=== PATIENT | female | born 1960 | race African-American/Black ===

== ENCOUNTER 2019-07-15 14:12 | Inpatient (IN) | payer OTHER ==
[~2019-07-15] VITALS: Ht 157.5 cm; Wt 85.3 kg
[2019-07-15 14:20] VITALS: BP 135/65
[2019-07-15 14:53] LABS: POLYS 76.5 % (36.0-66.0)
[2019-07-15 14:54] LABS: ABSOLUTE NEUTROPHILS 12.3 thou/uL (1.4-8.2); BASOPHILS 0.5 % (0.0-2.0); EOSINOPHILS 0.8 % (0.0-3.0); LYMPHOCYTES 14.7 % (24.0-44.0); MCH 27.8 pg (26.0-34.0); MCHC 30.7 g/dL (28.0-37.0); MCV 90.7 fL (80.0-100.0); MONOCYTES 7.5 % (1.0-8.0); PLATELET COUNT 336 thou/uL (150-400); RBC 1.82 mil/uL (4.20-5.00); RDW 16.4 % (10.5-14.5); WBC 16.1 thou/uL (4.0-11.0)
[2019-07-15 14:57] LABS: HEMATOCRIT 16.5 % (37.0-47.0); HEMOGLOBIN 5.1 gm/dL (12.0-15.0)
[2019-07-15 15:02] LABS: CALCIUM 8.9 mg/dL (8.5-10.1); CREATININE 3.6 mg/dL (0.6-1.0)
[2019-07-15 15:06] LABS: ALBUMIN 2.9 g/dL (3.4-5.0); TOTAL BILIRUBIN 0.5 mg/dL (<0.1-1.0); TOTAL PROTEIN 7.8 g/dL (6.4-8.2)
[2019-07-15 15:15] LABS: APTT 26.9 Seconds (24.5-32.8); INR 1.1; PROTIME 11.6 Seconds (9.3-11.4)
[2019-07-15 16:09] VITALS: BP 116/50
[2019-07-15 16:46] LABS: CHOLESTEROL 160 mg/dL (<200); HDL CHOLESTEROL 32 mg/dL (>40); LDL CHOLESTEROL 86 mg/dL (<100); TRIGLYCERIDE 214 mg/dL (<150); VLDL 43 mg/dL (<40)
[2019-07-15 16:50] LABS: URINE BILIRUBIN NEGATIVE (Negative); URINE BLOOD 2+ (Negative); URINE CLARITY CLOUDY; URINE COLOR YELLOW; URINE GLUCOSE-RANDOM* NEGATIVE (Negative); URINE KETONES NEGATIVE (Negative); URINE LEUKOCYTES-REFLEX 2+ (Negative); URINE NITRITE-REFLEX NEGATIVE (Negative); URINE PROTEIN (DIPSTICK) 2+ (Negative); URINE SPECIFIC GRAVITY 1.015 (1.005-1.035); URINE UROBILINOGEN 0.2 E.U./dl (0.2-1.0)
[2019-07-15 16:50] LABS: SERUM ASSESSMENT Clear
[2019-07-15 16:59] LABS: CASTS None Seen /LPF (None Seen); CRYSTALS None Seen /LPF (None Seen); SQUAMOUS >10 Many /LPF (0-3); URINE RBC 3-10 Few /HPF (0-2); URINE WBC-REFLEX >25 Many /HPF (0-5); WBC CLUMPS Many (None Seen)
[2019-07-15 17:11] LABS: FOLIC ACID 14.8 ng/mL (8.6-58.9); TSH 2.035 uIU/mL (0.358-3.740)
[2019-07-15 18:52] VITALS: BP 142/60; BP 145/63
[2019-07-15 19:17] VITALS: BP 116/50
[2019-07-15 20:45] VITALS: BP 138/89
[2019-07-15 21:00] VITALS: BP 142/86
[2019-07-16] VITALS (8 sets, daily range): BP systolic 129–143; BP diastolic 60–81
--- NOTE | 2019-07-16 09:02 | NUR ---
ADMIT PT ALERT BUT REFUSES TO ANSWER ANY ADMISSION QUESTIONS. REPORTED PAIN IN WOUNDS TO RIGHT UPPER AND LOWER LEGS FEELING LIKE A SUNBURN UPSET AND WANTING CREAM APPLIED, WOUND PICTURES OBTAINED, WOUNDS CLEANSSED WITH NS AND COVERED WITH VASELINE GAUZE AND AN ABD. PT GIVEN BED BATH, WOUNDS FOUL AND VERY ODOROUS MODERATE BLOODY DRAINAGE. 2ND UNIT OF BLOOD COMPLETED NO S/S/ OF REACTION NOTED. IVF'S INITIATED VANCO AND ZOSYN GIVEN.
[2019-07-16 11:56] LABS: CALCIUM 8.8 mg/dL (8.5-10.1); CREATININE 3.2 mg/dL (0.6-1.0); POTASSIUM 4.3 mmol/L (3.5-5.1)
[2019-07-16 12:31] LABS: HEMOGLOBIN 6.6 gm/dL (12.0-15.0); WBC 12.9 thou/uL (4.0-11.0)
[2019-07-16 12:34] LABS: HEMATOCRIT 20.1 % (37.0-47.0); MCH 28.7 pg (26.0-34.0); MCHC 32.9 g/dL (28.0-37.0); MCV 87.2 fL (80.0-100.0); RBC 2.31 mil/uL (4.20-5.00); RDW 15.2 % (10.5-14.5)
--- NOTE | 2019-07-16 16:03 | NUR ---
PT ADMITTED RELATED TO RIGHT LOWER EXTREMITY WOUNDS. CM REVIEWED CHART AND SPOKE WITH CARE TEAM. CM MET WITH PT AT BEDSIDE THIS DAY. PT IS A&O X4. CM ROLE INTRODUCED. PT INDICATED SHE HAD BEEN LIVING AT [facility] FOR THE LAST 5 YEARS BUT THAT SHE HAD LEFT THERE YESTERDAY AND HAD GOTTEN HERSELF AN APARTMENT WHERE SHE HAD BEEN FOR A FEW HOURS. 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 PT INDICATED SHE HAD A WHEELCHAIR FOR USE IN THE COMMUNITY. PT INDICATED NO HH HX. PT INDICATED NO PCP. PT INDICATED SHE HAD NO EMERGENCY CONTACTS SHE WANTED LISTED. PT INDICATED SHE WASN'T RECEPTIVE TO POST ACUTE CARE STAY UPON DC. PT INDICATED THERE HAD BEEN ISSUE WITH HER INSURANCE AT THE FACILITY BUT THAT SHE SAID SHE HAD "[facility], WHATEVER THAT IS." PT RECEPTIVE TO VISITING WITH [facility]. CARE TEAM REACHED OUT TO ABRAMS TO CLARIFY PLOF AND INSURANCE INFO. CM TO FOLLOW INIDCATED WITH DC PLANNING.
--- NOTE | 2019-07-16 19:25 | NUR ---
Received awake on bed. Due medications given as prescribed. On room air. Vital signs stable. On room air. Pt very irritable and upset upon rounds this AM, wants to be transferred to - Dr Richmond informed and said he cannot do hospital to hospital transfer, may do discharge or AMA- Pt informed and asked for her decision- she just keeps on telling "I don't know", explained to her but she got angry and said that she is being yelled at, I explained to her that I was just explaining what the doctor said re: her transfer- charge nurse informed. Pt with ongoing blood transfusion during report this AM, blood finished, intervention filed up and repeat blood draw ordered at 10:30, Vital signs taken. Pt has been very upset with everything and refusing to answer assessment questions. Pt seen by wound team, dressing changed- Dakins wet to dry applied. Complained of pain, due PRN pain med of tylenol given as prescribed, still complaining of pain offered her PRN morphine IV but pt complained. Dr Richmond informed re: pain meds and prescribed [place] but pt refused still. Pt seen by Dr Sharpe this AM, pt said she does not want to be seen by him today and wants his own Supervisor [facility]. Pt seen by Dr Ann this AM as well, he read Dr Sharpe's notes and asked pt if she still wants to be seen, pt did not answer, he ordered CT scan to be done- pt did not refuse; for NPO post midnight- senior production supervisor nurse informed. Pt became very upset that there is nothing done with her pain, explained to her that I have been relaying to her Dr her complaints and she has been refusing medications given to her, pt became more upset when I was explaining to her and she said I was barking on her and she wanted to talk to the supervisor advice- called Red Levin and notified her that pt wants to talk to her, informed Etienne intake manager as well. Relayed to Dr Richmond CBC post blood transfusion results and he ordered 1 unit PRBC to be transfused, consent signed, vital signs taken. 3rd unit blood started at 1834- no reactions noted during first 15 mins, verified by Charge nurse. senior production supervisor nurse informed to continue blood transfusion and observe for any reactions. Assisted in ADLs. On renal diet- tolerating well, no nausea, no vomiting and no abdominal pain noted. Falls risk- falls bundle in place.
--- NOTE | 2019-07-17 03:55 | NUR ---
ASSUMED CARE OF PT AT 1900HRS. PT IS AOX3-4 AND MEKES NEEDS BE KNOWN. PT RECEIVED BLOOD TODAY WITH NO COMPLICATIONS. PT REPORTED SOME PAIN BUT IS ONLY TAKING TYLENOL. PT PLACED NPO AT MD FOR A POSSIBLE PROCEDURE IN THE AM. PT WAS ABLE TO GET COMFORTABLE AND SLEEP PART OF THE SHIFT. VSS AND NO S/S OF AVUTE DISTRESS. WILL CONTINUE TO MONITOR.
[2019-07-17 04:10] VITALS: BP 130/61
[2019-07-17 05:17] LABS: HEMATOCRIT 27.2 % (37.0-47.0); MCH 29.2 pg (26.0-34.0); MCHC 31.8 g/dL (28.0-37.0); MCV 91.7 fL (80.0-100.0); RBC 2.97 mil/uL (4.20-5.00); RDW 15.3 % (10.5-14.5); WBC 11.3 thou/uL (4.0-11.0)
[2019-07-17 05:19] LABS: HEMOGLOBIN 8.7 gm/dL (12.0-15.0)
[2019-07-17 05:23] LABS: CALCIUM 8.6 mg/dL (8.5-10.1); CREATININE 2.9 mg/dL (0.6-1.0); POTASSIUM 4.5 mmol/L (3.5-5.1)
[2019-07-17 08:20] VITALS: BP 160/73
[2019-07-17 10:36] VITALS: BP 143/62
[2019-07-17] MEDS ORDERED: XALATAN2.5 ML EA. EYE (12:01)
[2019-07-17] MEDS ORDERED: COSOPT PF EYE1 EACH EA. EYE (12:02)
[2019-07-17] MEDS ORDERED: LATANOPROST 0.2.5 ML EA. EYE (12:08)
--- NOTE | 2019-07-17 12:24 | NUR ---
Assess due to pt with right thigh and lower extremity leg wounds. Seem by wound care. Pt aggitated at time of visit, but willing to allow assist with ordering dinner and breakfast meal and provide food preferences. Unable to obtain information regarding wt hx. Pt squirmish in bed moving constantly. Most recent meals 60-90%. Encouraged high protein foods for wounds. Pt does not like much meat or eggs but really likes to eat fish. Will follow intake trends, add oral supplement if necessary. Low nutrition risk
[2019-07-17] MEDS ORDERED: NF EA. EYE (12:46)
--- NOTE | 2019-07-17 14:23 | NUR ---
FACESHEET FAXED TO [employer], FOR MEDICAID ASSISTANCE.
--- NOTE | 2019-07-17 14:58 | NUR ---
akin spoke with [place] where pt was resident for 5 years to see if could get medicaid number since pt cont to state she has insurance. " no in fact she does not have any active insurance, every time we tried to help her renew she would tell us to f-you and she would refuse cares. tried many time to send her out to have the legs eval and then odor, mast would come to get her and she would tell them to f-you. she wanted to go to but rehab department manager called 911 for her and you all closer than , so i guess she ended up with you all. no active insurance. we gave her wheel chair and walker donation."/jacinto.
[2019-07-17 15:55] VITALS: BP 143/75
--- NOTE | 2019-07-17 19:01 | HC ---
[facility] [place] [address] CONSULTATION Name: JOSIE BROWN Room #: 460-P ADM IN M.R.#: [id number] Admission: 07/15/19 Attend Phys: Mahin Richmond MD Discharge: Date of : 56 Report #: [id number] THIS REPORT FOR: //name// CC: Mahin Richmond [facility] physician/PCP DATE OF SERVICE: 07/16/2019 INFECTIOUS DISEASE CONSULTATION REASON FOR CONSULTATION: I was asked to evaluate concerning right lower extremity soft tissue mass with a secondary infection. HISTORY OF PRESENT ILLNESS: The patient is a 58-year-old who presents to the Emergency Room from [facility] with right lower extremity increased pain and swelling. The patient reports this has worsened over the last several days following a specific dressing change. She could not give me any further details. She could not give me details as far as how long she has been dealing with this wound and swelling. She was a very poor historian. REVIEW OF SYSTEMS: Ten-point review was negative other than what has been described above. It is noted the patient presented with marked anemia and elevated creatinine, which appeared chronic. ALLERGIES: IBUPROFEN. MEDICATIONS: As noted on her MAR, now including vancomycin and Zosyn. PAST MEDICAL HISTORY: Reported hypertension, chronic kidney disease. FAMILY HISTORY: Noncontributory. SOCIAL HISTORY: Nonsmoker, no significant alcohol intake. PHYSICAL EXAMINATION: GENERAL: She was afebrile and hemodynamically stable. Alert and cooperative. She was obese. EYES: Without scleral icterus. MOUTH: Without mucositis. NECK: Supple. LUNGS: Clear. HEART: Regular, without murmur. ABDOMEN: Soft and nontender with no hepatosplenomegaly or mass. EXTREMITIES: With large fungating mass with necrotic tissue, right lower leg, associated with nodularity going proximally to her anterior lateral thigh. 2+ edema involving the leg. [facility] [address] [place] [address] CONSULTATION Name: JOSIE BROWN Room #: 460-P ADM IN .R.#: [id number] Admission: 07/15/19 Attend Phys: Mahin Richmond MD Discharge: Date of : 56 Report #: [id number] LABORATORY STUDIES: Reviewed. MICROBIOLOGY: Reviewed. CT scan of the right lower extremity reviewed, noting anterior leg mass without bony change. IMPRESSION: 1. A 58-year-old with extensive right lower extremity soft tissue mass involving both the lower leg and thigh with secondary gram-negative infection. 2. Chronic kidney disease. 3. Gram-negative urinary tract infection. 4. Anemia. RECOMMENDATIONS: We will continue gram-negative coverage with Zosyn for both urine and soft tissue, adjusted for her renal failure. We will need tissue sampling for pathology review. Continue wound care and Nephrology followup. <ELECTRONICALLY SIGNED> By: Christopher Collins MD 07/17/19 [id number] Christopher Collins MD /ghanshyam
--- NOTE | 2019-07-17 20:04 | NUR ---
Assumed pt care this am, with wounds on her left leg and hip with a very foul smelling odor ragerless if wound dressing changes were made frequently. Dr. Ann did a bedside biopsy, sample sent to the lab. Pt was upset and wanted fo thw would to be cleaned "I and D" explained with the MD the reason for the biopsy, pt spoke to Dr. Ann. Pt would call out for pain medication when addressed pt would refuse the pain meds, this was done several times through out the shift. New wound dressing orders in from wound care team, awaiting Dr. Bowser to put in the orders for more Flagyl to be crushed and sprinkled on the [facility] bed since order placed was only 1 tab, call was made to the office of Dr. Bowser left a message for thew change. POC followed.endorsed to the night nurse.
[2019-07-17 20:14] VITALS: BP 139/68
--- NOTE | 2019-07-18 03:08 | NUR ---
ASSUMED CARE OF PT AT 1900HRS. PT IS AOX4 AND LETS NEEDS BE KNOWN . FALL PRECAUTION IN PLACE. PT REPORTS PAIN BUT REFUSES NARCOTICS ORDERED. DRESSING CHANGED PER TAYO. ASSESSMENT CHARTED. PT WAS ABLE TO GET COMFORTABLE AND SLEEP PART OF THE SHIFT. VSS AND NO S/S OF ACUTE DISTRESS. WILL COTINUE TO MONITOR.
[2019-07-18 05:43] LABS: HEMATOCRIT 23.5 % (37.0-47.0); HEMOGLOBIN 7.8 gm/dL (12.0-15.0); MCH 29.5 pg (26.0-34.0); MCHC 33.2 g/dL (28.0-37.0); MCV 88.6 fL (80.0-100.0); RBC 2.66 mil/uL (4.20-5.00); RDW 15.3 % (10.5-14.5); WBC 10.7 thou/uL (4.0-11.0)
[2019-07-18 08:04] VITALS: BP 141/69
[2019-07-18 09:41] LABS: % SATURATION 36 % (20-39); IRON 35 ug/dL (50-170); TIBC 98 ug/dL (250-450)
[2019-07-18 17:00] VITALS: BP 143/90
--- NOTE | 2019-07-18 19:33 | NUR ---
Assumed pt care this am, pt was pleasant and followed POC with no complaints. Fall precautions in place, wound care and dressing done. Pt verbalized that the cream on the would has worked and pain is minimal. POC followed no signs or verbalzations of distress have been noted. VS stable, external sawant in place. endorsed to the night nurse.
[2019-07-18 20:05] VITALS: BP 160/70
[2019-07-19 04:25] LABS: INR 1.1
--- NOTE | 2019-07-19 04:30 | NUR ---
ASSUMED CARE AROUND 191. AXOX3. LLE DRESSING REINFORCED. NO S/S ACUTE DISTRESS NOTED OR REPORTED AT THIS TIME. WILL CONT TO MONITOR FOR ANY CHANGES IN CONDITION.
[2019-07-19 04:43] LABS: CALCIUM 8.4 mg/dL (8.5-10.1); MAGNESIUM 1.7 mg/dL (1.8-2.4); PHOSPHORUS 2.7 mg/dL (2.5-4.9); POTASSIUM 4.2 mmol/L (3.5-5.1)
[2019-07-19 05:06] LABS: ABSOLUTE NEUTROPHILS 6.5 thou/uL (1.4-8.2); BASOPHILS 0.9 % (0.0-2.0); EOSINOPHILS 2.2 % (0.0-3.0); HEMATOCRIT 23.9 % (37.0-47.0); HEMOGLOBIN 7.9 gm/dL (12.0-15.0); LYMPHOCYTES 17.2 % (24.0-44.0); MCH 29.6 pg (26.0-34.0); MCHC 33.3 g/dL (28.0-37.0); MONOCYTES 9.5 % (1.0-8.0); PLATELET COUNT 236 thou/uL (150-400); POLYS 70.2 % (36.0-66.0); RBC 2.68 mil/uL (4.20-5.00); RDW 15.2 % (10.5-14.5); WBC 9.3 thou/uL (4.0-11.0)
[2019-07-19 05:10] LABS: TSH 1.697 uIU/mL (0.358-3.740)
[2019-07-19 08:00] VITALS: BP 144/85
[2019-07-19 15:00] VITALS: BP 162/85
--- NOTE | 2019-07-19 16:42 | NUR ---
Assumed pt care at 7am.Pt in bed alert and oriented x4 but needy. Assessment completed.vss but elevated bp noted.Dr Fall notified. She rounded on pt and discussed with pt care options.Pt will [facility] for [facility] treatment.Medicated pt with tylenol for rt hip pain.Waiting for wound care doc to round on pt before changing drsg.Pt was worried about loosing her apt if she didn't dc home tomorrow.Rn let the pt know that machine adjuster leader case trim will assist in am.Will continue to monitor.
[2019-07-19 20:15] VITALS: BP 149/82
--- NOTE | 2019-07-20 04:37 | NUR ---
ASSUMED CARE OF PT AT 1900HRS. PT IS AOX4 WITH SOME FORGETFULNESS. FALL PRECAUTION IN PLACE. PT HAD DRESSING CHANGED THIS SHIFT. PT REPORTED SOME PAIN AND WAS TREATED WITH PRN PAIN MEDS. NO COMPLAINTS OF NAUSEA. PT WASABLE TO GET COMFORTABLE AND SLEEP PART OF THE SHIFT. VSS AND NO S/S OF ACUTE DISTRESS. WILL CONTINUE TO MONITOR.
[2019-07-20 07:40] VITALS: BP 155/87
--- NOTE | 2019-07-20 12:20 | NUR ---
cm received phone call from pt stated she wanted to speak with cm per voice message. cm called spoke with viktor via phone call " this is about if you send me out or can i just go there with recommendation?. i could just go to [facility] on my own it is right by my home and in need a half day to pay my rent and get my insurance or i will not have a place to live"/pt. education that would pass on information to sw team and cont with dcp. no cant dc when dr are ordering transfer. education that md is wanting to transfer to another hospital that can met her needs for pt safety. " i will be home less and that is inhumane to make me stay for transfer, when i can just go there my self and i don't have anyone to pay my rent. i need to or going to have no place to live that is inhumane"/marilee.
--- NOTE | 2019-07-20 12:35 | O ---
[facility] [place] [address] OPERATIVE REPORT Name: JOSIE BROWN Room #: 460-P ADM IN M.R.#: [id number] Admission: 07/15/19 Attend Phys: Mahin Richmond MD Discharge: Date of : 56 Report #: [id number] THIS REPORT FOR: //name// CC: Mahin Richmond [facility] physician/PCP DATE OF SERVICE: 07/17/2019 PROCEDURE PERFORMED: Excisional biopsy of right hip wound. PREOPERATIVE DIAGNOSES: 1. Severe right hip wound. 2. Severe right lower extremity wound. POSTOPERATIVE DIAGNOSES: 1. Severe right hip wound. 2. Severe right lower extremity wound. SURGEON: Dr. Ann. SUPERVISOR CUSTOMER SERVICES: None. ANESTHESIA: Marcaine with epinephrine. ESTIMATED BLOOD LOSS: Less than 10 mL. URINE OUTPUT: Not measured. COMPLICATIONS: None. SPECIMENS: Skin and mass biopsy for pathology. INDICATIONS FOR PROCEDURE: The patient is a very pleasant 58-year-old female with severe right lower extremity wounds. The patient will not tell me how long these wounds have been here. The appearances of the wounds are impressive and concerning for malignancy. They are both fungating and have masses extending out of them. The patient was consented for a soft tissue biopsy. The risks, benefits and alternatives of the procedure were discussed with the patient. The risks discussed included but were not limited to the risk of bleeding, infection, wound nonhealing, postoperative hematoma. The patient had the opportunity to ask questions. All questions were answered to the best of my ability at the end of the discussion and she did wish to proceed with surgery. DESCRIPTION OF PROCEDURE: After informed consent was obtained as above, the patient was placed in the left lateral decubitus position on the hospital bed. Her right hip was prepped and draped in the usual sterile fashion. Timeout was [address] [address] OPERATIVE REPORT Name: JOSIE BROWN Room #: 460-P ADM IN M.R.#: [id number] Admission: 07/15/19 Attend Phys: Mahin Richmond MD Discharge: Date of : 56 Report #: [id number] performed. Local anesthetic was injected. The periphery of the wound was biopsied using 11 blade scalpel and taking a 1 x 1 cm sylvester shaped biopsy. The biopsy was placed in a formalin container. The biopsy site was hemostatic and was closed with 2-0 Prolene in an interrupted fashion. The patient tolerated the procedure well. There were no adverse events throughout the course of procedure. <ELECTRONICALLY SIGNED> By: Jerome Ann MD 07/20/19 1235 [id number] Jerome Ann MD /nt
--- NOTE | 2019-07-20 12:35 | HC ---
[facility] [place] [address] CONSULTATION Name: JOSIE BROWN Room #: 460-P ADM IN M.R.#: [id number] Admission: 07/15/19 Attend Phys: Mahin Richmond MD Discharge: Date of : 56 Report #: [id number] THIS REPORT FOR: //name// CC: Mahin Richmond [facility] physician/PCP DATE OF SERVICE: 07/16/2019 CONSULTING PHYSICIAN: Dr. Ann. REASON FOR CONSULTATION: Severe large right lower extremity wound. ASSESSMENT: 1. Large right hip wound and large right starkey wound. The patient reports due to wheelchair and detention neglect. Appearance concerning for malignancy. 2. Renal failure. 3. Hypertension. 4. Morbid obesity. RECOMMENDATIONS: 1. Thank you for the consultation. I will follow along. 2. Appearance of the wound is very concerning for malignancy. The patient should undergo biopsy. 3. According to the chart, the patient has been refusing medical care and has been bothering physicians before allowing them to see her. The patient refused to see Nephrology and reported that she would be transferred to . We did discuss this with the primary team who reports that the patient does not have a medical reason or necessity to transfer to and therefore, will either have to be discharged and go to on her own or leave AMA. Following this update, the patient is reluctant to make a decision either way. 4. In the meantime, I will order a CT scan of her right lower extremity. She will likely need an MRI to follow. I will see if she is willing to undergo the CT scan first. 5. I will make the patient n.p.o. at midnight in the event and she does decide to stay for that right here, perhaps perform a bedside or operative room biopsy. HISTORY OF PRESENT ILLNESS: The patient is a 58-year-old female from ____ Retirement who presents with severe wound on her right leg ____ overlying the right hip as well as on the right starkey. She reports that it is due to the friction on the wheelchair rubbing on the leg. She is very nondescript regarding the lesion. She reports that it just started; however, given the appearance of it that is not consistent with an accurate history. PAST MEDICAL HISTORY: Hypertension. PAST SURGICAL HISTORY: Unobtainable. [address] [address] CONSULTATION Name: JOSIE BROWN Room #: 460-P [facility] IN M.R.#: [id number] Admission: 07/15/19 Attend Phys: Mahin Richmond MD Discharge: Date of : 56 Report #: [id number] SOCIAL HISTORY: Denies use of alcohol, tobacco or recreational drugs. FAMILY HISTORY: Denies coagulopathy or cancer. REVIEW OF SYSTEMS: CONSTITUTIONAL: No fever. No chills. HEENT: Denies blurring of vision, double vision, headaches, hearing loss, sinus drainage or sore throat. Denies blurring of vision, double vision, headaches, hearing loss, sinus drainage or sore throat. CARDIOVASCULAR: Denies chest pain, palpitations, orthopnea or paroxysmal nocturnal dyspnea. RESPIRATORY: Denies cough, wheezing, hemoptysis, or shortness of air. GASTROINTESTINAL: No nausea. No vomiting. No diarrhea. No Heartburn. No nausea. No vomiting. No diarrhea. No Heartburn. GENITOURINARY: Denies dysuria or hematuria or kidney stones. No urinary frequency, urgency or incontinence. Denies dysuria or hematuria or kidney stones. No urinary frequency, urgency or incontinence. MUSCULOSKELETAL: No joint pain. No muscle pain. NEUROLOGICAL: Denies tremor, stroke or seizure. Denies tremor, stroke or seizure. HEMATOLOGIC / LYMPHATICS: Denies easy bruising, easy bleeding or enlarged lymph nodes. SKIN: See above and below. ENDOCRINE: No heat or cold intolerance PSYCHIATRIC: Denies depression, anxiety, or schizophrenia. PHYSICAL EXAMINATION: GENERAL: No apparent distress, alert and oriented x3. HEENT: PERRLA, EOMI, MMM, NCAT NECK: Supple. No LAD CARDIOVASCULAR: Regular rhythm and rate. Hemodynamically stable. Normal capillary refill. Regular rhythm and rate. Hemodynamically stable. Normal capillary refill. PULMONARY: Nonlabored. Clear to auscultation bilaterally ABDOMEN: Soft, nontender to palpation, no guarding, no rigidity, no rebound tenderness, no hernias. EXTREMITIES: Right lower extremity is involved with extensive wound. She has a wound overlying the right hip that involved the entire surface of her lateral hip as well as anteriorly and posteriorly. The wound is fungating. It is foul smelling. There is no active purulence draining from it. It is tender to palpation. Overlying the right starkey, the patient has a severe necrotic appearing, foul smelling, fungating wound. There is one primary mass extending from the center of it, which is semi-pedunculated. SKIN: No rashes or bruises. PSYCHIATRIC: Normal mood and affect Normal mood and affect [facility] [address] [place] [address] CONSULTATION Name: JOSIE BROWN Room #: 460-P ADM IN M.R.#: [id number] Admission: 07/15/19 Attend Phys: Mahin Richmond MD Discharge: Date of : 56 Report #: [id number] NEUROLOGICAL: Grossly intact. CN II-XII grossly intact. MUSCULOSKELETAL: 5/5 strength in upper extremities and lower extremities bilaterally LYMPHATICS: No cervical, inguinal, or supraclavicular lymphadenopathy. LABORATORY DATA: 1. Hemoglobin is ____ range on admission. 2. Creatinine is elevated. IMAGING: CT of the right lower extremity is pending. <ELECTRONICALLY SIGNED> By: Jerome Ann MD 07/20/19 1235 [id number] Jerome Ann MD /nt
[2019-07-20 14:59] VITALS: BP 131/59
--- NOTE | 2019-07-20 16:11 | NUR ---
WOUND CARE FOLLOW UP; ROUNDING WITH DR CRUZ AND RANGEL AGUILAR BSN. THE RIGHT HIP AND THE RIGHT LAT LEG WOUNDS LOOK CLININCALLY BETTER SINCE MY LAST ASSESSMENT. THE ODOR HAS DIMINISHED WELL. I ASSISTED RN WITH THE DRESSINGS. RECOMMENDATIONS; CONTINUE CURRENT POC
--- NOTE | 2019-07-20 16:23 | NUR ---
CM FOLLOWED UP MULTIPAL TIMES THIS DAY TO DISCUSS TRANSFER TO [facility] FOR SURGICAL ONC AND PLASTICS EVAL AND TREAT. PT INDICATED SHE WANTED TO GO HOME FOR HALF A DAY TO PAY HER RENT AND CANCEL HER MAIL ORDER PERSCRIPTIONS. PT'S RENT ISN'T DUE UNTIL 08/12. CM INDICATED THAT CARE TEAM ISN'T AGREEABLE WITH THAT THAT PT WOULD NEED TO DC DIRECTLY TO OTHER ACCEPTING HOSPITAL. PT INDICATED SHE WASN'T AGREEABLE TO THAT. CM THEN INDICATED THAT THE ALTERNATIVE WOULD BE PT DISCHARGING AMA. PT STATED SHE DIDN'T WANT TO DC AMA, BUT PT ISN'T CONSENTING TO TRANSFER BEING INITIAATED. PT INDICATED SHE HAS A FRIEND WHO WORKS FOR A [employer] VISITING TODAY AND SHE WAS GOING TO DISCUSS SOME THINGS WITH HER AND WOULD THEN FOLLOW UP WITH CM REGARDING A DETERMINATION. CM TO FOLLOW INDICATED WITH DC PLANNING.
[2019-07-20 19:04] VITALS: BP 159/70
--- NOTE | 2019-07-20 19:59 | NUR ---
Assumed pt care this am, wound dressing change thoday. Pt is wanting to go home first "to take care of things", is ok to go to . VS stable, medications and diet are well tolerated. Pt had a visitor to claimed to be working on her case against facility she came from, requested to take pictures of her wounds. POC followed, no signs or verbalizations of distress have been noted. External Ffc in place. Endporsed to the night nurse.
--- NOTE | 2019-07-21 03:28 | NUR ---
PT CARE ASSUMED AT 1900 .PT IS A/O X4.PT COMPLAINED OF PAIN AND ASKED FOR TYLENOL FOR HER PAIN MGT.PT WOUND DRESSING IN D/C/I.PT HAS AN EXTERNAL FEMALE CATHETER IN PLACE.PT HAD A LARGE BM THIS AM.PT IS X2 ASSIST .PT IS INCONTINENT TO B/B .IV ACCESS ON LT WRIST WITH NS AT 75.WILL CONTINUE TO MONITOR
[2019-07-21 08:00] VITALS: BP 160/76
[2019-07-21] MEDS ORDERED: METRONIDAZOLE500 M4 PO ×2 (11:26→14:59)
[2019-07-21 13:44] VITALS: BP 160/76
--- NOTE | 2019-07-21 14:06 | NUR ---
CARE TEAM INDICATED THAT PT IS TO BE DISHCARGED HOME WITH NO NEEDS. PT WAS NOT AGREEABLE WITH CM ATTEMPTING HOSPITAL TO HOSPITAL TRANSFER. CARE TEAM INDICATED THAT PT IS TO BE DISCHARGED HOME AND SHE IS TO FOLLOW UP OUTPATIENT AT ANOTHER TERTIARY FACILITY FOR CONTINUD CARE. PT INIDCATED THAT HER FRIEND WHO WORKS FOR A HOME HEALTH COMPANY WILL ASSIST HE AND THAT SHE WILL SEEK CARES AN OUTPATIENT ONCE SHE PAYS HER AUGUST RENT AND ADDRESSES HER MAIL ORDER PERSCRIPTIONS. NO OTHER CM INTERVENTION INDICATED. CASE CLOSED.
[2019-07-21 19:53] VITALS: BP 151/77
--- NOTE | 2019-07-21 20:55 | NUR ---
Assumed pt care this am, VS stable. Wound care done. Pt was dc by Dr. Richmond DC was being refused by the pt and wanted to wait for the biopsy results, as the pt had mentioned that a dr informed her that this will be out today. Pt was indecisive as to if she was going home or going to . Pt would change her mind and was very confused and frustrated. Informed Dr. Richmond and he agreeded pt is to go home tomorrow, informed the night nurse to inform the case worked for the need for transportation. Pt should be dc sobia.
--- NOTE | 2019-07-22 03:59 | NUR ---
ASSUMED CARE AROUND 191. AXOX3. RLE DRESSING REINFORCED. NO S/S ACUTE DISTRESS NOTED OR REPORTED AT THIS TIME. WILL CONT TO MONITOR FOR ANY CHANGES IN CONDITION.
[2019-07-22 06:03] LABS: HEMATOCRIT 24.2 % (37.0-47.0); HEMOGLOBIN 8.1 gm/dL (12.0-15.0); MCHC 33.5 g/dL (28.0-37.0); MCV 89.5 fL (80.0-100.0); RBC 2.71 mil/uL (4.20-5.00); WBC 9.4 thou/uL (4.0-11.0)
[2019-07-22 06:14] LABS: CREATININE 1.7 mg/dL (0.6-1.0); POTASSIUM 3.8 mmol/L (3.5-5.1)
[2019-07-22 08:00] VITALS: BP 167/74
[2019-07-22] MEDS ORDERED: NORVASC 2.5 MG2.5 M1 PO (09:01)
[2019-07-22] MEDS ORDERED: CARVEDILOL12.5 MG PO (09:01)
[2019-07-22] MEDS ORDERED: CEFDINIR300 MG PO (09:01)
[2019-07-22 10:35] VITALS: BP 160/76
--- NOTE | 2019-07-22 16:07 | NUR ---
PT HAD REFUSED DC YESTERDAY SHE STATES THAT SHE WAS TOLD SHE WAS GOING TO BE GETTING BIOPSY RESULTS. PHYSICAIN INFORMED PT THIS AM THAT THEY WOULDN'T BE AVAIABLE FOR HER IN THE IMIDIATE FUTURE AND THAT SHE WAS MEDICALLY STABLE TO DC HOME TO SELF CARE WITH OUTPATIENT FOLLOW UP. CM VISITED WITH PT TO SEE IF SHE NEEDED ASSISTANCE WITH TRANSPOTATION HOME. SHE INDICATED THAT SHE NOW JUST WANTED TO GO TO . CM INDICATED THAT PT HAD BEEN DISCHARGED AND THAT THAT WASN'T POSSIBLE AT THIS TIME, BUT THAT CM COULD ASSIST WITH SETTING UP WHEELCHAIR VAN TRANSPORTATION HOME THIS DAY. PT INDICATED SHE WAS NOT AGREEABLE TO THAT AND THAT SHE WOULD CALL NON EMERGANCY TRANSPORT TO PICK HER UP. CM INDICATED THAT IT WOULD NOT BE APPROPRIATE FOR THEM TO PICK HER UP HERE. CM INDICATED THAT CM COULD ARRANGE TRANSPORT TO HER HOME AND ATTEMPTED TO CONFIRM HER ADDRESS BUT SHE REFUSED TO CONFIRM IT. MEAT MOLDER, ABDI MCLEOD, AND CM REVENUE ENFORCEMENT COLLECTION AGENT ARE ALL AWARE AND INVOLVED. SHOULD PT BE RECEPTIVE TO WHEELCHAIR VAN TRANSPORT CALL [facility] AT IF NEED TO GO TO HOMELESS [facility]DC CONTACT [facility] [id number] [facility] [id number].
[2019-07-22 17:00] VITALS: BP 160/76
--- NOTE | 2019-07-22 20:28 | NUR ---
Assumed pt care at 7am.Pt in bed very anxious about dc home today.Assessment completed.Vss.But elevated bp noted.Dr Richmond notified and order noted.Later this afternoon,pt informed about dc home and she said she will call friend to pick her up.Dc summary compile and reviewed with pt.When pt was told to sign her dc summary,she said she declined going home but will transfer to [facility].parking lot manager and Dr Richmond notified.Pt was rejected by [facility] due to lack of insurance.Dr Richmond came back to unit to discuss pt care option but pt refused but insisted on calling non emergency ambulance to take her to [facility]. Nicolás Richmond dc'd all iv meds and said pt will stay till am and figure out dc plan.Report off to esdras rn.
--- NOTE | 2019-07-23 03:55 | NUR ---
RECEIVED PT IN BED ALL DRESSED READY TO LEAVE THE UNIT. RECEIVED THE REPORT THAT PT DECLINED TO PROVIDE ADDRESS FOR HOME THAT SHE WANTS TO BE PICKED BY 911 IN LOBBY AND TRANSPORTED TO ER. NOTIFIED PT THAT CM AND SW AND CARE TEAM WILL TRY OUT INTER-FACILITY TRANSFER IN AM FOR SAFE DISCHARGE. PT PERSISTENLY ARGUING THAT PT WOULD LIKE TO LEAVE NOW DECLINING THE ATTEMPT FOR INTER-FACILITY TRANSFER. PT REFUSED ALL CARE INCLUDING VITAL SIGNS, CHANING IN TO GOWN OR CHECKING PT IF SHE'S WET OR NEEDS CARE, PERSISTENTLY STATING THAT PT WANTS TO LEAVE. REPORTED TO JOINERY MACHINIST MEG PAN AND PER AERONAUTICAL ENGINEERING OFFICER, LEADERSHIP,SW,RISK MANAGEMENT AND PT ADVOCATE ALREADY ON PT'S CASE THAT HOSPITAL IS UNABLE TO D/C PT TO LOB AT THIS TIME. TRIED TO COMMUNICATE WITH PT ABOUT THE IMPORTANCE OF INTER-FACILITY TRASFER AND MAINTAINING PT'S SAFETY, PT CALLED PT'S VALVE INSERTER PAUL HOBBS FROM [employer] [phone] (CELL) AND REQUESTED THAT HER ATTONEY TO BE INVOLVED IN THE MATTER OF DISCHARGE. DEMANDING THAT PT LEAVE RIGHT AWAY. AFTER SPEAKING TO , VERBALIZED THE IMPORTANCE OF TRANSFER TO AND AGREED TO AID FOR TIMELY TRNASFER.
--- NOTE | 2019-07-23 10:17 | NUR ---
PT ALERT AND ORIENTED TIMES FOUR. PT VERY AGITATED THIS MORNING. PT REFUSED MORNING ASSESSMENT, REFUSED MORNING MEDICATIONS ALSO REFUSED PT/OT CONSULTS. PLANS TO DISCHARGE TODAY
--- NOTE | 2019-07-23 12:12 | NUR ---
WOUND CARE F/U asked to assist set staff fitterJESUS GORDON w/ wound care to right thigh and lower leg, pt pleasant and cooperative at this time, planning dc today, photos taken, less odor noted, large fungating wound thigh fair amt tannish drainage, fungating wound lower leg abd pad w/ bright red drainage, no obvious bleeding noted, see process interventions for details RECOMMENDATIONS plan to dc today, cont current tx, extra drsgs left in room for pt take w/ her, set staff fitter aware
--- NOTE | 2019-07-23 14:49 | NUR ---
CARE TEAM INDICATED THAT PT IS MEDICALLY STABLE TO SD. CM WAS INSTRUCTED TO ORDER A WHEELCHAIR FOR PT AND ARRANGE TRANSPORT TO [facility] [place]. CM ORDERED STANDARD MANUAL WHEELCHAIR THROUGH PROVIDER PLUS IT WAS DELIVERED THIS AFTERNOON. CM VOUCHERD PT'S MEDICATIONS AT THE COST OF $43.03 HAVING REQUESTED AND RECIEVED CM HYDROELECTRIC STATION OPERATOR PERMISSION TO ORDER AND VOUCHER BOTH. CM ARRANGED [facility] TO TAKE PT TO [facility] [place]. NO OTHER CM INTERVENTION INDICATED. CASE CLOSED.
--- NOTE | 2019-07-23 15:07 | PATH ---
[facility] [address] [place] [address] PATHOLOGY RPT PROCEDURE Name: MARIA LUISA BROWN Room #: 460-P ADM IN M.R.#: [id number] Admission: 07/15/19 Date of : 56 Discharge: Report #: [id number] Path Case #: [id number] [facility] Accession Number: [id number] . 01 Material submitted: . hip - RIGHT HIP SKIN WOUND. Modifiers: right . 01 Clinical history: . Right lower extremity wounds Right hip skin wound Concerned about cancer . 02 Diagnosis: Skin, right hip skin, excisional biopsy: - FINDINGS COMPATIBLE WITH AN ANGIOSARCOMA, PLEASE SEE COMMENT. - LESION EXTENDS TO THE SAMPLED MARGINS. (IUV:software test manager; 07/23/2019) MBR 07/23/2019 1316 Local . 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 Rare foci show poorly formed vessels. Intracytoplasmic eosinophilic globules are not identified. Multiple properly controlled immunohistochemical stains are performed on block A2 and are interpreted as follows. . P63 - nonreactive. P40 - nonreactive. CD45 - scattered cells identified adjacent to the neoplastic cells; neoplastic cells are nonreactive. CD34 - approximately 30% of malignant cells show membranous reactivity. CD31 - membranous reactivity present within 80% or neoplastic cells. S-100 - nonreactive. HMB-45 - nonreactive. Vimentin - reactive within the neoplastic cells. CD30 - nonreactive. ALK1 - nonreactive. CD68 - reactive within scattered histiocytes. AE1/AE3 - nonreactive within the neoplastic cells. . 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 Based on the FNCLCC grading system, this tumor is graded as follows: Poorly differentiated angiosarcoma therefore a tumor differentiation score of 3/3, Mitotic count 10-19 mitoses per 10 HPF therefore a score of 2, Tumor necrosis - not identified/no necrosis therefore a score of 0 and a Total histologic grade of grade II (total score 5/8). [address] [address] PATHOLOGY RPT PROCEDURE Name: MARIA LUISA BROWN Room #: 460-P [facility] IN M.R.#: [id number] Admission: 07/15/19 Date of : 56 Discharge: Report #: [id number] Path Case #: [id number] . Dr. Margaret Thurston has seen a insurance follow up representative H and E slide of this case as well as a few immunohistochemical stains and concurs with my diagnosis. Findings of this case are discussed with Dr. Jerome Ann in the morning of 07/21/19 and the findings were confirmed on 07/22/19. . (IUV:software test manager; 07/23/2019) . 02 Electronically signed: . Akilah Washington MD, Pathologist NPI- [id number] . 01 Gross description: . Received in formalin labeled "Maria Luisa Brown, R hip," is a roughly elliptical skin excision specimen measuring 1.7 x 0.8 cm and excised to a depth of up to 1.0 cm. The epidermal surface is smooth to wrinkled and dusky river-mercdees in appearance, displaying no distinct lesions or nodules. The surgical margin is inked black. Serial sectioning reveals firm, pale yellow-mercedes to dark mercedes-brown cut surfaces. The specimen is sectioned into eight pieces and submitted entirely in cassettes A1 and A2, with the bisected tips in A2. . Also received within the specimen container is a partially disrupted segment of narrow, elongate skin measuring 1.3 x 0.3 cm and excised to a depth of up to 0.4 cm. The epidermal surface is partially disrupted and dusky river-mercedes in appearance. The surgical margin is inked black, and this segment is serially sectioned and submitted entirely in cassette A3. Sectioning reveals river-mercedes cut surfaces. (DAC; 07/20/2019) XDC/XDC 07/20/2019 0941 Local . 02 Pathologist provided ICD-10: C49.21 . 02 CPT . 443196, [id number], [id number] Specimen Comment: A courtesy copy of this report has been sent to [phone], [phone] Specimen Comment: [id number] Specimen Comment: Report sent to and Performed at: [address] [facility], [place], [place] [id number] MD Chris Garcia MD Phone: [phone] Performed at: [address] [id number] MD Akilah Washington MD Phone: [phone]
== END 2019-07-23 16:33 | disposition home or self-care (01) | DRG 593 ==
LOC: ER 14:12 → EROBS 16:14 → 4W 16:14 → ENTRNSPT 07-22 16:05 → 4W 07-23 16:33
PROVIDERS: Internal Medicine; Physician Assistant; ADMIT Hospitalist
DX: L97.119 Non-pressure chronic ulcer of right thigh with unspecified severity (principal); N39.0 Urinary tract infection, site not specified; L03.115 Cellulitis of right lower limb; E44.0 Moderate protein-calorie malnutrition; N18.4 Chronic kidney disease, stage 4 (severe); D64.9 Anemia, unspecified; L97.819 Non-pressure chronic ulcer of other part of right lower leg with unspecified severity; I12.9 Hypertensive chronic kidney disease with stage 1 through stage 4 chronic kidney disease, or unspecified chronic kidney disease; B96.89 Other specified bacterial agents as the cause of diseases classified elsewhere; E66.01 Morbid (severe) obesity due to excess calories; R53.81 Other malaise; Z88.8 Allergy status to other drugs, medicaments and biological substances; Z68.34 Body mass index [BMI] 34.0-34.9, adult
CPT/HCPCS: 10040